=== PATIENT | male | born 1940 | race Caucasian/White ===

== ENCOUNTER 2018-09-06 20:27 | Emergency (ER) | payer MEDICARE ==
[~2018-09-06] VITALS: Ht 188 cm; Wt 104.3 kg
[2018-09-06] MEDS ORDERED: TDAP [DIPH/PERTUSSIS/TET] 0.5 ML VIAL IM ONE ×2 (20:56→21:00)
--- NOTE | 2018-09-06 20:56 | NUR ---
PT BIB FRIEND S/P GLF. LACERATION NOTED ABOVE LEFT EYE. DENIES KO/INGRAM. PT ON MONITOR IN BED 6. WILL CONTINUE TO MONITOR.
[2018-09-06] MEDS ORDERED: LIDOCAINE 1%-EPI 1:100,000 20 ML VIAL ONE (21:04)
--- NOTE | 2018-09-06 21:23 | NUR ---
Patient discharged to home in stable condition. Written and verbal after care instructions given. Patient verbalizes understanding of instruction.
[2018-09-06 21:29] VITALS: BP 219/120
== END 2018-09-06 21:30 | disposition home or self-care (01) ==
LOC: ER 20:30
DX: S01.112A Laceration without foreign body of left eyelid and periocular area, initial encounter (principal); S09.8XXA Other specified injuries of head, initial encounter; Z60.2 Problems related to living alone; W01.0XXA Fall on same level from slipping, tripping and stumbling without subsequent striking against object, initial encounter; Y93.01 Activity, walking, marching and hiking; Y92.480 Sidewalk as the place of occurrence of the external cause; Y99.8 Other external cause status
CPT/HCPCS: 90715; A4606; A6402; J3490; Z7610

== ENCOUNTER 2018-09-16 15:32 | Emergency (ER) | payer MEDICARE ==
[~2018-09-16] VITALS: Ht 188 cm; Wt 94.8 kg
[2018-09-16 15:47] VITALS: BP 193/90
== END 2018-09-16 16:35 | disposition home or self-care (01) ==
LOC: ER 15:34
DX: S01.112D Laceration without foreign body of left eyelid and periocular area, subsequent encounter (principal); Z60.2 Problems related to living alone; X58.XXXD Exposure to other specified factors, subsequent encounter
CPT/HCPCS: 99281; A4606; A6403; Z7502

== ENCOUNTER 2019-01-27 22:04 | Inpatient (IN) | payer MEDICARE ==
[~2019-01-27] VITALS: Ht 188 cm; Wt 99.8 kg
--- NOTE | 2019-01-27 22:30 | NUR ---
PT BIBSELF C/O DYSURIA X2 WEEKS. +URINARY FREQUENCY, -HEMATURIA, -FLANK PAIN -N/V/D. PT AOX4. NAD NOTED. RESP EVEN AND UNLABORED. PT ON MONITOR IN BED 10. WILL CONTINUE TO MONITOR.
--- NOTE | 2019-01-27 22:38 | NUR ---
URINE COLLECTED AND SENT TO LAB
[2019-01-27 22:59] LABS: APPEARANCE,URINE Clear (CLEAR); BILIRUBIN,URINE Negative (NEGATIVE); BLOOD, URINE Trace-intact Ery/uL (NEGATIVE); COLOR,URINE Yellow (YELLOW); KETONES,URINE Negative (NEGATIVE); LEUKOCYTE ESTERASE ,URINE Negative (NEGATIVE); NITRITE, URINE Negative (NEGATIVE); PROTEIN,URINE 30 mg/dl (NEGATIVE); UGLUCOSE Negative (NEGATIVE); UROBILINOGEN,URINE 0.2 EU/dL (0.2)
[2019-01-27 23:07] LABS: BASOPHILS # (AUTO) 0.1 /CMM (0.0-0.2); BASOPHILS % (AUTO) 0.8 % (0.0-2.0); EOSINOPHILS % (AUTO) 4.3 % (0.0-6.0); HEMATOCRIT 49 % (39-51); HEMOGLOBIN 16.5 g/dL (13.5-17.5); LYMPHOCYTES % (AUTO) 28.9 % (20.0-44.0); MEAN CORPUSCULAR HGB CONC 34 g/dl (31.0-36.0); MEAN CORPUSCULAR VOLUME 94 fL (80-96); MONOCYTES # (AUTO) 0.5 /CMM (0.1-1.30); MONOCYTES % (AUTO) 6.9 % (2.0-12.0); NEUTROPHILS # (AUTO) 4.2 /CMM (1.8-8.9); NEUTROPHILS % (AUTO) 59.1 % (43.0-81.0); PLATELET COUNT (AUTO) 279 /CMM (150-450); RED BLOOD CELL COUNT(AUTO) 5.16 MIL/uL (4.5-6.0); WHITE BLOOD COUNT (AUTO) 7.1 K/uL (4.3-11.0)
--- NOTE | 2019-01-27 23:12 | NUR ---
BLOOD DRAWN AND GIVEN TO LAB
[2019-01-27 23:19] LABS: CALCIUM, SERUM 9.5 mg/dL (8.5-10.1); CARBON DIOXIDE 32 mmol/L (21-32); CHLORIDE 105 mmol/L (98-107); CREATININE 1.3 mg/dL (0.6-1.3); GLUCOSE 87 mg/dL (74-106); POTASSIUM 4.2 mmol/L (3.5-5.1); SODIUM SERUM 141 mmol/L (136-145); UREA NITROGEN, BLOOD 21 mg/dL (7-18)
[2019-01-27 23:23] LABS: ALANINE AMINOTRANSFERASE 19 U/L (12-78); ALBUMIN 3.5 g/dL (3.4-5.0); ALKALINE PHOSPHATASE 77 U/L (46-116); ASPARTATE AMINOTRANSFERASE 16 U/L (15-37); BILIRUBIN,DIRECT 0.1 mg/dL (0.0-0.2); BILIRUBIN,TOTAL 0.5 mg/dL (0.2-1.0); LIPASE 233 U/L (73-393); TOTAL PROTEIN, SERUM 7.4 g/dL (6.4-8.2)
--- NOTE | 2019-01-27 23:34 | NUR ---
Char bonner in [facility] - 01/27/19 at 2338 by LIUZ Patient discharged to home in stable condition. Written and verbal after care instructions given. Patient verbalizes understanding of instruction.
[2019-01-27 23:50] LABS: BACTERIA,URINE Few /HPF (None Seen); SQUAMOUS EPITHELIAL CELL,UR Rare /HPF (None Seen)
[2019-01-28] MEDS ORDERED: hydrALAZINE HCL IV 20 MG VIAL IV ONE ×2 (00:30→01:30)
[2019-01-28] MEDS ORDERED: hydrALAZINE HCL IV 20 MG VIAL ONE (00:36)
[2019-01-28] MEDS ORDERED: NIFEdipine XL (30MG) 30 MG TAB PO STA (01:21)
[2019-01-28] MEDS ORDERED: NICARDIPINE IN DEXTROSE,ISO-OS 200 ML IV ONE (02:13)
[2019-01-28] MEDS ORDERED: IOHEXOL-350 100 ML VIAL IV ONE ×2 (02:21→02:40)
[2019-01-28] MEDS ORDERED: CT SWABBABLE VALVE TRANS SET 1 EA INFUS.SET MC ONE (02:21)
[2019-01-28] MEDS ORDERED: IV NS 0.9% 250 ML IV ONE (02:21)
--- NOTE | 2019-01-28 02:26 | NUR ---
PT TAKEN TO CT VIA [facility]
[2019-01-28] MEDS ORDERED: NICARDIPINE IN NACL, ISO-OSM 20 MG/200 ML PIGGYBACK IV ONE (02:30)
[2019-01-28] MEDS ORDERED: LABETALOL HCL IV 100MG VIAL IV ONE (02:30)
--- NOTE | 2019-01-28 04:02 | NUR ---
Patient is resting comfortably in bed with eyes closed. Easily aroused. VSS.
[2019-01-28] MEDS ORDERED: TEMAZEPAM 15 MG CAPSULE PO PRN (06:00)
[2019-01-28] MEDS ORDERED: Z GUARD REMEDY 2 OZ OINT TP PRN (06:00)
[2019-01-28] MEDS ORDERED: NITROGLYCERIN 0.4 MG/TAB BOTTLE SL ONE (06:00)
[2019-01-28] MEDS ORDERED: MAG HYDROX/AL HYDROX/SIMETH 30 ML UDC PO PRN (06:00)
[2019-01-28] MEDS ORDERED: HYDROCODONE/APAP 5/325MG 1 EACH TABLET PO PRN (06:00)
[2019-01-28] MEDS ORDERED: ONDANSETRON HCL/PF 4 MG/2 ML VIAL IVP PRN (06:00)
[2019-01-28] MEDS ORDERED: MORPHINE SULFATE INJ 2 MG/ML DISP.SYRIN IV PRN (06:00)
[2019-01-28] MEDS ORDERED: MAGNESIUM HYDROXIDE 30 ML UDC PO PRN (06:00)
[2019-01-28] MEDS ORDERED: ACETAMINOPHEN 325 MG TABLET PO PRN (06:00)
[2019-01-28] MEDS ORDERED: ENOXAPARIN SODIUM 40 MG/0.4 ML DISP.SYRIN SQ SCH ×2 (06:00→06:58)
--- NOTE | 2019-01-28 06:30 | NUR ---
REPORT GIVEN TO AZUL INMAN FOR RENETTA
[2019-01-28 06:54] LABS: MAGNESIUM 2.3 mg/dL (1.8-2.4); PHOSPHORUS 3.8 mg/dL (2.5-4.9)
--- NOTE | 2019-01-28 06:54 | NUR ---
RECEIVE PT VIA [facility] AT 0647 FROM ER SERVICES ADMIT TO TELE NO COMPLAIN OF PAIN. NO S/S OF DISTRESS STABLE. VS TAKEN BP 177/85 HR 81 R 20 TEMP 98.0 SP02 94% R.A KEPT COMFORTABLE AND SAFETY MEASURES AT ALL TIMES, ENDORSE TO THE NEXT SHIFT CONTINUITY OF CARE
[2019-01-28 06:55] LABS: THYROID STIMULATING HORMONE 4.105 uIU/mL (0.358-3.74)
[2019-01-28] MEDS: PANTOPRAZOLE 40 MG TABLET.DR PO SCH (07:50)
[2019-01-28 08:00] VITALS: BP 163/75
--- NOTE | 2019-01-28 08:00 | NUR ---
ICU MANAGER OPENING NOTE PATIENT RECEIVED IN BED, AWAKE, NO SOB OR ACUTE DISTRESS NOTED. NO C/O PAIN. NO N/V, INGRAM. STABLE. BP 177/85 HR 81 R 20 TEMP 98.0 SP02 94%. ON ROOM AIR. PATIENT CLEAN, DRY AND COMFORTABLE. SAFETY MEASURES IN PLACE. BED IN LOW LOCKED POSITION, CALL LIGHT WITHIN REACH. WILL CONTINUE TO MONITOR.
[2019-01-28] MEDS: ENOXAPARIN SODIUM 40 MG/0.4 ML DISP.SYRIN SQ SCH (08:02)
--- NOTE | 2019-01-28 09:00 | NUR ---
CARROTER NOTE NITROGLYCERINE HELD DUE TO PATIENT REFUSAL. PATEINT STATES HE HAS NO CHEST PAIN AND DOES NOT WANT THE MEDICATION.
[2019-01-28 12:00] VITALS: BP 175/74
[2019-01-28] MEDS: IV NS 0.9% 1,000 ML IV PRN (15:56)
[2019-01-28 16:00] VITALS: BP 186/85
[2019-01-28] MEDS: CLONIDINE HCL 0.1 MG TABLET PO PRN ×2 (16:54→23:52)
[2019-01-28] MEDS: LISINOPRIL (20MG) 20 MG TABLET PO SCH (18:00)
[2019-01-28] MEDS: HYDROCHLOROTHIAZIDE 25 MG TABLET PO SCH (18:00)
[2019-01-28 18:13] LABS: FREE PSA 2.31 ng/mL (0.00-45); PROSTATE SPECIFIC ANTIGEN SCR 10.52 ng/mL (0.00-4.00)
--- NOTE | 2019-01-28 19:12 | NUR ---
PROGRAMS MANAGER CLOSING NOTE PATIENT IN BED, AWAKE, A/O X 4, NO SOB OR ACUTE DISTRESS NOTED. NO C/O PAIN. NO N/V, INGRAM. ON ROOM AIR. RAC # 18 SL INTACT AND PATENT INFUSING NS @ 75ML/HR. PATIENT CLEAN, DRY AND COMFORTABLE. SAFETY MEASURES IN PLACE. BED IN LOW LOCKED POSITION, CALL LIGHT WITHIN REACH. CARE ENDORSED TO CHEMICAL TREATMENT PLANT TECHNICIAN RN.
--- NOTE | 2019-01-28 19:45 | NUR ---
CHARLES/COLLECTIONS MANAGER RECEIVED REPORT FROM DAY NURSE. SEE FLOWSHEET FOR ASSESSMENT, CURRENTLY NO SKIN ISSUES TO ADDRESS. PT CURRENTLY HAS IVF, WHICH ARE ADDRESSED ON MAR AND IF FLOWSHEET. PT IS ALERT X 4. PT IS CURRENTLY ON ROOM AIR, WITH SATURATION AT 95%. CALL LIGHT WITHIN REACH WILL CONTINUE TO MONITOR THIS PT.NO ACUTE DISTRESS SEEN AT THIS TIME.
[2019-01-28 20:00] VITALS: BP 138/70
--- NOTE | 2019-01-28 23:59 | NUR ---
CHARLES/SAUTE CHEF PT UP TO BATHROOM, HOOKED PT BACK UP TO IVF HOWEVER THEY STARTED TO LEAK. NOTIFIED CHARGE NURSE WHO WAS ABLE TO PLACE NEW IV TO LEFT FOREARM 22. OTHER SITE WAS D/C'D.
[2019-01-29] VITALS (9 sets, daily range): BP systolic 151–180; BP diastolic 61–90
--- NOTE | 2019-01-29 00:45 | NUR ---
CHARLES/SENIOR CUSTOMER SERVICE REPRESENTATIVE PT'S BLOOD PRESSURE FOR MIDNIGHT WAS ELEVATED TO 166/78. PT HAS PRN CLONIDINE WHICH WAS GIVEN FOR THIS. WILL CONTINUE TO MONITOR PT'D BLOOD PRESSURE.
--- NOTE | 2019-01-29 02:45 | NUR ---
CHARLES/SHINGLE CUTTER PT CURRENTLY REFUSED ASSIST WITH AM CARE. PT SAID HE WOULD LIKE TO SLEEP A LITTLE. CALL LIGHT WITHIN REACH
--- NOTE | 2019-01-29 05:50 | NUR ---
CHARLES/GREENHOUSE FLORIST AM LABS WERE DONE. AWAIT ANY ABNORMAL LABS
[2019-01-29] MEDS: PANTOPRAZOLE 40 MG TABLET.DR PO SCH (06:15)
[2019-01-29] MEDS: IV NS 0.9% 1,000 ML IV PRN (06:21)
[2019-01-29 06:23] LABS: BASOPHILS % (AUTO) 1.3 % (0.0-2.0); EOSINOPHILS % (AUTO) 5.2 % (0.0-6.0); HEMATOCRIT 44 % (39-51); HEMOGLOBIN 14.9 g/dL (13.5-17.5); LYMPHOCYTES # (AUTO) 2.4 /CMM (0.8-4.8); LYMPHOCYTES % (AUTO) 29.5 % (20.0-44.0); MEAN CORPUSCULAR HGB CONC 34 g/dl (31.0-36.0); MEAN CORPUSCULAR VOLUME 93 fL (80-96); MONOCYTES # (AUTO) 0.6 /CMM (0.1-1.30); MONOCYTES % (AUTO) 7.8 % (2.0-12.0); NEUTROPHILS # (AUTO) 4.5 /CMM (1.8-8.9); NEUTROPHILS % (AUTO) 56.2 % (43.0-81.0); PLATELET COUNT (AUTO) 252 /CMM (150-450); RED BLOOD CELL COUNT(AUTO) 4.79 MIL/uL (4.5-6.0); WHITE BLOOD COUNT (AUTO) 8.1 K/uL (4.3-11.0)
[2019-01-29 06:24] LABS: BASOPHILS # (AUTO) 0.1 /CMM (0.0-0.2)
[2019-01-29 06:45] LABS: CALCIUM, SERUM 9.4 mg/dL (8.5-10.1); CARBON DIOXIDE 27 mmol/L (21-32); CHLORIDE 104 mmol/L (98-107); CREATININE 1.1 mg/dL (0.6-1.3); GLUCOSE 91 mg/dL (74-106); POTASSIUM 3.8 mmol/L (3.5-5.1); SODIUM SERUM 139 mmol/L (136-145); UREA NITROGEN, BLOOD 24 mg/dL (7-18)
--- NOTE | 2019-01-29 06:51 | NUR ---
CHARLES/COMPLEX COMMERCIAL LITIGATION PARALEGAL TALKED TO DR ROJAS ABOUT BP, SAID OK AND PRN DOSE OF CLONIDINE. AND BP DOWN TO 155. SEE DR'S NOTES FOR UPDATE.
--- NOTE | 2019-01-29 08:10 | NUR ---
RN CHARLES: pt.is A/Ox3, no pain now, no c/o, SR, BP 159/90, O2sat. over 95% on r/a, getting NS@75ml/h, is in room, updated with all above, see new orders
[2019-01-29] MEDS: HYDROCHLOROTHIAZIDE 25 MG TABLET PO SCH (08:42)
[2019-01-29] MEDS: ENOXAPARIN SODIUM 40 MG/0.4 ML DISP.SYRIN SQ SCH (08:43)
[2019-01-29] MEDS: LISINOPRIL (20MG) 20 MG TABLET PO SCH (08:44)
[2019-01-29] MEDS ORDERED: ACETAMINOPHEN 325 MG TABLET ONE (09:51)
--- NOTE | 2019-01-29 11:00 | NUR ---
RN CHARLES: pt.sleeps well, no c/o, no pain
[2019-01-29] MEDS ORDERED: LISI20TA61 PO (11:54)
[2019-01-29] MEDS ORDERED: HYDR25TA4 PO (11:54)
--- NOTE | 2019-01-29 12:30 | NUR ---
KEYBOARD ACTION ASSEMBLER: got order from for diacharge charge nurse reported, BP 180/80 now, no c/o now, Catapres 0.1 mg given, need to wait and recheck BP
[2019-01-29] MEDS: CLONIDINE HCL 0.1 MG TABLET PO PRN (12:50)
--- NOTE | 2019-01-29 16:30 | NUR ---
RN CHARLES: last 3 hrs SBP 150-159, SR, no any pain, no c/o, pt is stable and discharged, aware to get appt with personal care worker (got contact inf) and urologist (pt had appt before), got detailed instruction f/u discharge plan and exit care packet, pt.friend is in room to pickup driver pt
[2019-02-03 07:25] LABS: RENIN, PLASMA 0.209 ng/mL/hr (0.167-5.380)
== END 2019-01-29 17:42 | disposition home or self-care (01) | DRG 305 ==
LOC: ER 22:11 → TELE1 01-28 06:18
DX: I16.0 Hypertensive urgency (principal); N13.8 Other obstructive and reflux uropathy; K55.1 Chronic vascular disorders of intestine; I70.1 Atherosclerosis of renal artery; N40.1 Benign prostatic hyperplasia with lower urinary tract symptoms; N18.9 Chronic kidney disease, unspecified; I12.9 Hypertensive chronic kidney disease with stage 1 through stage 4 chronic kidney disease, or unspecified chronic kidney disease
CPT/HCPCS: 36415; 80048-TC; 80061-TC; 80076-TC; 81000-TC; 82088; 82533; 83690-TC; 83735-TC; 84100-TC; 84153-TC; 84154-TC; 84244; 84443-TC; 85025-TC; 87081-TC; 87086-TC; G0378; J0360; J1650; J7030; J7050; Q9967